=== PATIENT | male | born 1970 | race Caucasian/White ===

== ENCOUNTER 2017-11-07 11:38 | Inpatient (IN) | payer OTHER ==
[~2017-11-07 11:38] MED LIST: SUCCINYLCHOLINE CHLORIDE 100 MG/5 ML SYG IV
[2017-11-07] MEDS ORDERED: D5W-0.45 NACL + KCL 20 MEQ 1,000 ML IV (14:11)
[2017-11-07] MEDS: BUPIVACAINE 0.25%/EPI (SDV) 30 ML INJ (14:23)
[2017-11-07] MEDS: THROMBIN 5000 UNIT VIAL (14:24)
[2017-11-07] MEDS: SURGIFOAM POWDER 1 GM KIT (14:24)
[2017-11-07] MEDS ORDERED: THROMBIN 5000 UNIT VIAL (14:24)
[2017-11-07] MEDS: HEPARIN 1000 UNITS/ML 10 ML INJ (14:24)
[2017-11-07] MEDS: POLYMYXIN/BACITRACIN 1L IRRIG (14:24)
[2017-11-07] MEDS: CA CHLORIDE 10% 10 ML SYRINGE (14:24)
[2017-11-07] MEDS ORDERED: HYDROmorphONE 0.5 MG/0.5 ML SYG IV (14:30)
[2017-11-07] MEDS ORDERED: BISACODYL 10 MG SUPP PR (14:30)
[2017-11-07] MEDS ORDERED: CEPASTAT LOZENGE MT (14:30)
[2017-11-07] MEDS ORDERED: METOCLOPRAMIDE 10 MG INJ IV (14:30)
[2017-11-07] MEDS ORDERED: NALOXONE (0.4 MG/ML) INJ IV (14:30)
[2017-11-07] MEDS ORDERED: DIPHENHYDRAMINE 25 MG CAP PO (14:30)
[2017-11-07] MEDS ORDERED: CARISOPRODOL 350 MG TAB PO (14:30)
[2017-11-07] MEDS ORDERED: OXYCODONE/ACETAMINOPHEN (10/325) TAB PO ×2 (14:30)
[2017-11-07] MEDS ORDERED: ONDANSETRON 4 MG INJ IV (14:30)
[2017-11-07] MEDS ORDERED: ACETAMINOPHEN 325 MG TAB PO (14:30)
[2017-11-07] MEDS ORDERED: FENTAnyl 50 MCG/ML VIAL IV (14:30)
[2017-11-07] MEDS ORDERED: DIPHENHYDRAMINE 50 MG INJ IV (14:30)
[2017-11-07] MEDS ORDERED: AL HYDROX/MG HYDROX/SIMETH 30 ML CUP PO (14:30)
[2017-11-07] MEDS ORDERED: HYDROmorphONE 1 MG/5 ML IV SYRINGE IV (14:30)
[2017-11-07] MEDS ORDERED: FENTAnyl 50 MCG/ML VIAL (14:47)
[2017-11-07] MEDS ORDERED: SUGAMMADEX SODIUM 200 MG/2 ML VIAL IV (15:22)
[2017-11-07] MEDS ORDERED: LIDOCAINE 100 MG SYRINGE (15:22)
[2017-11-07] MEDS ORDERED: SUCCINYLCHOLINE CHLORIDE 100 MG/5 ML SYG IV (15:22)
[2017-11-07] MEDS ORDERED: CEFAZOLIN 1 GM INJ (15:22)
[2017-11-07] MEDS ORDERED: ROCURONIUM 50 MG INJ (15:22)
[2017-11-07] MEDS ORDERED: PROPOFOL 20 ML (15:22)
[2017-11-07] MEDS: MEPERIDINE 25 MG INJ IV (16:43)
[2017-11-07] MEDS: HYDROmorphONE 1 MG/5 ML IV SYRINGE IV ×4 (16:49→17:19)
[2017-11-07] MEDS ORDERED: GABAPENTIN 300 MG CAP PO (17:00)
[2017-11-07] MEDS: FENTAnyl 50 MCG/ML VIAL IV ×2 (17:01→17:07)
[2017-11-07] MEDS: CEFAZOLIN 1 GM/50 ML (PMX) 50 ML IVPB (17:12)
[2017-11-07] MEDS: ONDANSETRON 4 MG INJ IV (17:20)
[2017-11-07] MEDS: HYDROmorphONE 0.2 MG/ML PCA IV (17:26)
[2017-11-07] MEDS: DIPHENHYDRAMINE 50 MG INJ IV (17:30)
[2017-11-07] MEDS ORDERED: MIDAZOLAM 1 MG/ML 2 ML INJ IV (18:00)
[2017-11-07] MEDS ORDERED: oxyCODONE (CR) 15 MG TAB [oxyCONTIN] PO (21:00)
[2017-11-07] MEDS ORDERED: TAMSULOSIN (SR) 0.4 MG CAP PO ×2 (21:00)
[2017-11-07] MEDS ORDERED: DOCUSATE SODIUM 100 MG CAP PO (21:00)
[2017-11-08] MEDS ORDERED: PANTOPRAZOLE 40 MG INJ IV (06:00)
== END 2017-11-07 21:00 | disposition home or self-care (01) | DRG 520 ==
LOC: REC 11:38 → MS1 18:00
PROC: 01NB0ZZ Release Lumbar Nerve, Open Approach (ICD-10-PCS; principal; 2017-11-07 14:00)
PROC: 0SB40ZZ Excision of Lumbosacral Disc, Open Approach (ICD-10-PCS; 2017-11-07 14:00)
DX: M51.17 Intervertebral disc disorders with radiculopathy, lumbosacral region (principal)
CPT/HCPCS: 72020; 86999

== ENCOUNTER 2018-10-03 05:21 | Inpatient (IN) | payer OTHER, BC ==
[2018-10-03] MEDS: LACTATED RINGER'S 1,000 ML IV (05:58)
[2018-10-03] MEDS ORDERED: ONDANSETRON 4 MG INJ (06:53)
[2018-10-03] MEDS ORDERED: HYDROmorphONE 2 MG/ML SYG (06:53)
[2018-10-03] MEDS ORDERED: PROPOFOL 20 ML ×2 (06:53→10:54)
[2018-10-03] MEDS ORDERED: METOCLOPRAMIDE 10 MG INJ (06:53)
[2018-10-03] MEDS ORDERED: ROCURONIUM 50 MG INJ ×3 (06:53→11:30)
[2018-10-03] MEDS ORDERED: CEFAZOLIN 1 GM INJ (06:53)
[2018-10-03] MEDS ORDERED: MIDAZOLAM 1 MG/ML 2 ML INJ (06:55)
[2018-10-03] MEDS ORDERED: DESFLURANE 15 MIN (07:00)
[2018-10-03] MEDS ORDERED: ACETAMINOPHEN 325 MG TAB PO (07:30)
[2018-10-03] MEDS ORDERED: DIPHENHYDRAMINE 25 MG CAP PO (07:30)
[2018-10-03] MEDS ORDERED: HYDROmorphONE 0.5 MG/0.5 ML SYG IV (07:30)
[2018-10-03] MEDS ORDERED: OXYCODONE/ACETAMINOPHEN (10/325) TAB PO (07:30)
[2018-10-03] MEDS ORDERED: CEPASTAT LOZENGE MT (07:30)
[2018-10-03] MEDS ORDERED: AL HYDROX/MG HYDROX/SIMETH 30 ML CUP PO (07:30)
[2018-10-03] MEDS ORDERED: DIPHENHYDRAMINE 50 MG INJ IV (07:30)
[2018-10-03] MEDS ORDERED: NALOXONE (0.4 MG/ML) INJ IV (07:30)
[2018-10-03] MEDS ORDERED: ONDANSETRON 4 MG INJ IV ×2 (07:30→10:00)
[2018-10-03] MEDS ORDERED: BISACODYL 10 MG SUPP PR (07:30)
[2018-10-03] MEDS ORDERED: ROPIVACAINE 0.5 % 30 ML VIAL (07:45)
[2018-10-03] MEDS: THROMBIN 20,000 UNIT VIAL (07:46)
[2018-10-03] MEDS: BUPIVACAINE 0.5%/EPI (SDV) 30 ML INJ (07:46)
[2018-10-03] MEDS: CEFAZOLIN 1 GM INJ (07:46)
[2018-10-03] MEDS ORDERED: HEPARIN 1000 UNITS/ML 10 ML INJ (07:46)
[2018-10-03] MEDS: GELATIN SIZE 100 SPONGE (07:46)
[2018-10-03] MEDS: CEFAZOLIN 2 GM/50 ML (PMX) 50 ML IVPB (07:53)
[2018-10-03] MEDS ORDERED: hydrALAzine 20 MG INJ (08:16)
[2018-10-03] MEDS: oxyCODONE (CR) 15 MG TAB [oxyCONTIN] PO ×2 (09:00→20:50)
[2018-10-03] MEDS: TIZANIDINE 4 MG TAB PO ×3 (09:00→20:51)
[2018-10-03] MEDS ORDERED: HYDROmorphONE 1 MG/5 ML IV SYRINGE IV ×2 (10:00)
[2018-10-03] MEDS ORDERED: FENTAnyl 50 MCG/ML VIAL IV (10:00)
[2018-10-03] MEDS ORDERED: FENTAnyl 50 MCG/ML VIAL ×2 (10:51→11:31)
[2018-10-03] MEDS ORDERED: NEOSTIGMINE 3 MG/3 ML SYRINGE (11:19)
[2018-10-03] MEDS ORDERED: GLYCOPYRROLATE 0.4 MG INJ (11:19)
[2018-10-03] MEDS: MEPERIDINE 25 MG INJ IV (11:45)
[2018-10-03] MEDS: FENTAnyl 50 MCG/ML VIAL IV ×2 (11:45→12:15)
[2018-10-03] MEDS: DIPHENHYDRAMINE 50 MG INJ IV (11:46)
[2018-10-03] MEDS: HYDROmorphONE 1 MG/5 ML IV SYRINGE IV (11:46)
[2018-10-03] MEDS: HYDROmorphONE 0.2 MG/ML PCA IV ×2 (11:48→20:25)
[2018-10-03] MEDS: DOCUSATE SODIUM 100 MG CAP PO ×2 (12:16→20:48)
[2018-10-03] MEDS: GABAPENTIN 300 MG CAP PO ×5 (12:16→20:50)
[2018-10-03] MEDS: CEFAZOLIN 1 GM/50 ML (PMX) 50 ML IVPB ×2 (13:24→20:53)
[2018-10-03] MEDS: D5W-0.45 NACL + KCL 20 MEQ 1,000 ML IV ×2 (14:05→17:02)
[2018-10-04] MEDS: D5W-0.45 NACL + KCL 20 MEQ 1,000 ML IV (01:31)
[2018-10-04] MEDS: HYDROmorphONE 0.2 MG/ML PCA IV (04:22)
[2018-10-04] MEDS: CEFAZOLIN 1 GM/50 ML (PMX) 50 ML IVPB (05:05)
[2018-10-04] MEDS: PANTOPRAZOLE 40 MG INJ IV (05:05)
[2018-10-04 05:27] LABS: ADD MAN DIFF? NO
[2018-10-04 05:32] LABS: BASOPHILS % 0.3 % (0.0-2.0); EOSINOPHILS # 0.1 10^3/ul (0.0-0.5); EOSINOPHILS % 0.6 % (0.0-7.0); HEMATOCRIT 36.5 % (42.0-52.0); LYMPHOCYTES # 1.4 10^3/ul (0.8-2.9); LYMPHOCYTES % 15.8 % (15.0-51.0); MEAN CORPUSCULAR HEMOGLOBIN 30.5 pg (29.0-33.0); MEAN CORPUSCULAR HGB CONC 32.9 g/dl (32.0-37.0); MEAN CORPUSCULAR VOLUME 92.9 fl (82.0-101.0); MEAN PLATELET VOLUME 9.9 fl (7.4-10.4); MONOCYTE # 0.6 10^3/ul (0.3-0.9); MONOCYTES % 7.5 % (0.0-11.0); NEUTROPHIL # 6.5 10^3/ul (1.6-7.5); NEUTROPHILS % 75.6 % (39.0-77.0); PLATELET COUNT 196 10^3/UL (140-415); RED BLOOD COUNT 3.93 10^6/ul (4.70-6.10); RED CELL DISTRIBUTION WIDTH 12.5 % (11.5-14.5)
[2018-10-04 05:32] LABS: WHITE BLOOD COUNT 8.6 10^3/ul (4.8-10.8)
[2018-10-04 06:35] LABS: ANION GAP 5 (5-13); BLOOD UREA NITROGEN 9 mg/dl (7-20); CALCIUM 8.3 mg/dl (8.4-10.2); CARBON DIOXIDE 30 mmol/L (21-31); CHLORIDE 99 mmol/L (97-110); CREATININE 0.71 mg/dl (0.61-1.24); Estimated GFR > 60 mL/min (>60); GLUCOSE 108 mg/dl (70-220); MAGNESIUM 2.1 mg/dl (1.7-2.5); POTASSIUM 4.2 mmol/L (3.5-5.1); SODIUM 134 mmol/L (135-144)
[2018-10-04] MEDS: oxyCODONE (CR) 15 MG TAB [oxyCONTIN] PO (09:00)
[2018-10-04] MEDS: GABAPENTIN 300 MG CAP PO ×4 (09:00→13:00)
[2018-10-04] MEDS: TIZANIDINE 4 MG TAB PO ×2 (09:05→12:52)
[2018-10-04] MEDS: DOCUSATE SODIUM 100 MG CAP PO (09:05)
[2018-10-04] MEDS: OXYCODONE/ACETAMINOPHEN (10/325) TAB PO ×2 (10:31→12:52)
[2018-10-04] MEDS: ARTIFICIAL TEARS 15 ML OPH BOTH EYES (12:53)
[2018-10-04 14:32] LABS: ADD UMIC YES; UR ASCORBIC ACID NEGATIVE (NEGATIVE); UR BACTERIA FEW /HPF (NONE SEEN); UR BILIRUBIN (Dip) NEGATIVE (NEGATIVE); UR BLOOD (Dip) 1+ mg/dL (NEGATIVE); UR CLARITY CLEAR (CLEAR); UR COLOR STRAW (YELLOW); UR GLUCOSE (Dip) NEGATIVE (NEGATIVE); UR KETONES (Dip) NEGATIVE (NEGATIVE); UR LEUKOCYTE ESTERASE (Dip) NEGATIVE Leu/ul (NEGATIVE); UR MUCUS FEW /HPF (NONE SEEN); UR NITRITE (Dip) NEGATIVE (NEGATIVE); UR RBC 3 /HPF (0-5); UR SPECIFIC GRAVITY (Dip) 1.005 (1.003-1.030); UR TOTAL PROTEIN (Dip) NEGATIVE (NEGATIVE); UR UROBILINOGEN (Dip) NEGATIVE (NEGATIVE); UR WBC 1 /HPF (0-5)
== END 2018-10-04 14:40 | disposition home or self-care (01) | DRG 455 ==
LOC: REC 05:21 → MS1 13:34
PROC: 0SG00A0 Fusion of Lumbar Vertebral Joint with Interbody Fusion Device, Anterior Approach, Anterior Column, Open Approach (ICD-10-PCS; principal; 2018-10-03 07:00)
PROC: 0SG10J1 Fusion of 2 or more Lumbar Vertebral Joints with Synthetic Substitute, Posterior Approach, Posterior Column, Open Approach (ICD-10-PCS; 2018-10-03 07:00)
PROC: 0SG30A0 Fusion of Lumbosacral Joint with Interbody Fusion Device, Anterior Approach, Anterior Column, Open Approach (ICD-10-PCS; 2018-10-03 07:00)
PROC: 0ST20ZZ Resection of Lumbar Vertebral Disc, Open Approach (ICD-10-PCS; 2018-10-03 07:00)
PROC: 0ST40ZZ Resection of Lumbosacral Disc, Open Approach (ICD-10-PCS; 2018-10-03 07:00)
DX: M51.16 Intervertebral disc disorders with radiculopathy, lumbar region (principal); M51.27 Other intervertebral disc displacement, lumbosacral region; F41.9 Anxiety disorder, unspecified; G89.4 Chronic pain syndrome; F98.8 Other specified behavioral and emotional disorders with onset usually occurring in childhood and adolescence; R50.82 Postprocedural fever
CPT/HCPCS: 72020; 72110; 80048; 81001; 83735; 85025; 86850; 86900; 86901; 86920; 87086; 88304; 97116; 97161; 97530